=== PATIENT | female | born 1980 | race Caucasian/White ===

== ENCOUNTER 2017-02-26 12:52 | Emergency (ER) | payer OTHER ==
--- NOTE | ~2017-02-26 | CR63 ---
[facility] A Service of [facility] & [facility] RADIOLOGY TEXT RESULTS PATIENT: JORDIN WILLARD LOCATION: CFTX : [id number] UNIT #: [id number] AGE: [address]: Yeni Cooley SEX: F ORDER DR: [id number] [facility] [address] [place], [place] [address] [id number] E MR#: [id number] Acc #: [id number] NAME: JORDIN WILLARD : 1980 SEX: F STUDY DATE/TIME: 02/26/2017 13:27 UNIT: [facility] ROOM: STUDY DESCRIPTION: CR Chest 2 View Attending Physician: Yeni Cooley P.A.-C. Ordering Physician: Yeni Cooley P.A.-C. Primary Care Physician: Hannah Wilson M.D. MEDICAL IMAGING REPORT This report is preliminary unless electronic signature is present EXAM 2-view chest 02/26/2017 HISTORY 36-year-old female with cough and congestion for 3 days. COMPARISON None FINDINGS 2 views of the chest demonstrate clear lungs. No pleural effusion or pneumothorax. Heart size and mediastinum are within normal limits. Pulmonary vasculature is unremarkable. IMPRESSION No acute cardiopulmonary findings. Dictated by... Jean-Pierre Owens M.D. THIS IS AN ELECTRONICALLY VERIFIED REPORT Jean-Pierre Owens M.D. at 02/27/2017 4:47 PM ANGE/nyla TD: 02/26/2017 15:55 JOB #: [id number] MEDICAL IMAGING REPORT Page 1 of 1 COPY
[~2017-02-26 12:52] MED LIST: VISTARIL PO
[2017-02-26 13:36] LABS: INFLUENZA A NEG (NEG)
[2017-02-26 13:37] LABS: INFLUENZA B NEG (NEG)
== END 2017-02-26 13:54 | disposition home or self-care (01) ==
LOC: CFTX 12:52
PROVIDERS: Physician Assistant
DX: J20.9 Acute bronchitis, unspecified (principal); Z87.891 Personal history of nicotine dependence; I10 Essential (primary) hypertension
CPT/HCPCS: 71020; 87804; 94640; 99284